=== PATIENT | male | born 1970 | race Caucasian/White ===

== ENCOUNTER → 2019-06-06 | Outpatient (CLI) | payer BC ==
--- NOTE | 2019-06-06 17:50 | US ---
EXAM DESCRIPTION: Soft Tissue,Abdomen CLINICAL HISTORY: ABD PN COMPARISON: None Available. TECHNIQUE: Sonogram anterior abdominal wall right lower quadrant FINDINGS: Sonogram of the right lower quadrant area of palpable concern anterior abdominal wall was performed. Normal subcutaneous fatty tissue. Normal anterior abdominal wall musculature. The properitoneal line appears intact with no hernia. Mild ventral bulge between rectus abdominis muscles. No hernia is identified. No fluid collection or mass where the patient feels a lump. IMPRESSION: Negative. Electronically signed by: Александр Torres MD 06/06/2019 5:48 PM CDT
== END ==
LOC: US 14:27
PROVIDERS: ATTEND Nurse Practitioner
DX: R10.9 Unspecified abdominal pain (principal)